=== PATIENT | female | born 1955 | race Two or more races ===

== ENCOUNTER → 2018-02-22 | Outpatient (CLI) | payer OTHER ==
[~2018-02-22] MED LIST: BARIUM SULFATE 40% (APPLE) 148 GM PWD. PO
[2018-02-22] MEDS: BARIUM SULFATE 40% (APPLE) 148 GM PWD. PO (10:29)
== END | disposition home or self-care (01) ==
LOC: RAD 10:03
DX: R13.10 Dysphagia, unspecified (principal)
CPT/HCPCS: 74230; 92611-GN

== ENCOUNTER → 2018-08-19 | Outpatient (CLI) | payer OTHER ==
[2017-11-05 15:03] VITALS: BP 146/69
[~2018-08-19] MED LIST changes: +ATOR10TA60 PO; -BARIUM SULFATE 40% (APPLE) 148 GM PWD. PO; +BUDE0.5A NEB; +CEPH-263 PO; +IPRA3AMP29 NEB; +LACT1CAP19 PO; +NITR100C62 PO; +PRED-220 PO; +SERT50TA8 PO
--- NOTE | 2018-08-19 14:13 | RAD ---
CT of the chest without IV contrast compared to CTA of the chest dated November 05, 2017 for history of lung cancer. TECHNIQUE: Contiguous helical 5 mm axial images are obtained from the thoracic inlet to the base of the diaphragm. Sagittal and coronal reformations are evaluated. FINDINGS: The previously seen areas of subsegmental atelectasis in both lung bases have resolved. There is redemonstration of patchy diffuse ground glass opacification through various segments and subsegments of both lungs, in a distribution largely unchanged from the prior examination. Differential diagnostic considerations for these findings on a chronic basis include eosinophilic pneumonia, any of the idiopathic interstitial pneumonias, or perhaps sarcoidosis. There are also several tiny 3 to 4 mm peripheral pulmonary nodules, most of which were not apparent on the prior CT scan likely due to respiratory motion artifact, though these nodules may be new. These can be seen in the right upper lobe on axial image 19, 21, 28, right middle lobe axial image 34, 37, right lower lobe axial image 39, left lower lobe axial image 39, 41, 42, and 50. No dominant nodules are identified. Heart size within normal limits. Mild multifocal coronary artery calcifications are seen. No suspicious mediastinal, hilar, or axillary lymphadenopathy is evident. No suspicious osteoblastic or osteolytic bone lesions are found. IMPRESSION: 1. Resolved bibasilar subsegmental atelectasis. 2. Persistent patchy segmental and subsegmental groundglass opacities in an unchanged distribution. The chronicity of this finding would suggest a differential diagnosis of any of the diopathic interstitial pneumonia, eosinophilic pneumonia, or perhaps sarcoidosis. 3. Multiple 3 to 4 mm peripheral pulmonary nodules which are too small to characterize. These were not definitely present on the prior examination, however they may have been obscured on the basis respiratory motion. Consider follow-up to establish stability over at least 12 months. Electronically signed by: Castro Pack MD (08/19/2018 2:10 PM) [email or web address]
== END | disposition home or self-care (01) ==
LOC: CT 09:06
PROVIDERS: ATTEND Internal Medicine Pulmonary Disease
DX: R91.8 Other nonspecific abnormal finding of lung field (principal); K21.9 Gastro-esophageal reflux disease without esophagitis; I10 Essential (primary) hypertension; E78.5 Hyperlipidemia, unspecified; J45.909 Unspecified asthma, uncomplicated; Z88.1 Allergy status to other antibiotic agents; Z88.8 Allergy status to other drugs, medicaments and biological substances
CPT/HCPCS: 71250

== ENCOUNTER 2018-11-25 11:08 | Emergency (ER) | payer OTHER ==
[~2018-11-25] VITALS: Ht 172.7 cm; Wt 92.1 kg
[2018-11-25 12:30] LABS: BASO % 1 % (0-3); EOS # 0.7 x10^3/uL (0.0-0.7); EOS % 8 % (0-3); HEMATOCRIT 41.7 % (36.0-47.0); HEMOGLOBIN 14.3 g/dL (12.0-15.5); LYMPH # 1.9 x10^3/uL (1.0-4.8); LYMPH % 22 % (24-48); MEAN CORPUSCULAR HEMOGLOBIN 31 pg (25-35); MEAN CORPUSCULAR HGB CONC 34 g/dL (31-37); MEAN CORPUSCULAR VOLUME 90 fL (79-100); MONO # 0.8 x10^3/uL (0.0-1.1); MONO % 10 % (0-9); NEUT # 5.1 x10^3uL (1.8-7.7); NEUT % 59 % (31-73); PLATELET COUNT 314 x10^3/uL (140-400); RED BLOOD COUNT 4.62 x10^6/uL (3.50-5.40); RED CELL DISTRIBUTION WIDTH 13.2 % (11.5-14.5); WHITE BLOOD COUNT 8.6 x10^3/uL (4.0-11.0)
--- NOTE | 2018-11-25 12:35 | PHYS DOC ---
Past Medical History Past Medical History: Asthma, Hypertension Past Surgical History: No Surgical History Alcohol Use: None Drug Use: None Adult General Chief Complaint Chief Complaint: SOA HPI HPI 63-year-old female presenting to the emergency department today with worsening cough and shortness of breath over the past 2 months. She has used her inhaler at home with mild relief. She has a history of asthma. Nonproductive cough. No fevers or chills. Review of systems is negative for chest pain abdominal pain nausea vomiting fevers or chills. She denies any new rashes. All other review of systems is negative unless otherwise noted in history of present illness. ED course: 63-year-old female presenting with a chronic cough with worsening shortness of breath. On arrival she is satting well on room air. She has wheezing on exam. Steroids and nebulizer given here in the emergency department. Chest x-ray and blood work obtained. Chest x-ray unremarkable. Blood work unremarkable. Patient has a nebulizer at home and would prefer to use that instead of getting a nebulizer here. We'll give the patient oral prednisone to continue nebulizer at home to follow up with PCP in one to 2 days.The patient has been examined and was not found to have an emergency medical condition. The patient was then discharged home in stable condition to follow up with their primary care physician over the next 1-2 days. They were to return if their symptoms worsened or if they were concerned for any reason. They were also instructed to return to the emergency department if they were unable to get the recommended and appropriate follow-up. [id number] discharge instructions and return precautions were given. Patient's questions were answered to their satisfaction. Patient is comfortable with plan. Review of Systems Review of Systems SEE ABOVE. Current Medications Current Medications Current Medications Medications (Trade) Dose Ordered Sig/Maria E Start Time Stop Time Status Last Admin Dose Admin Albuterol/ Ipratropium (Duoneb) 3 ml 1X ONCE 11/25/18 15:00 11/25/18 15:01 DC Allergies Allergies Allergies Coded Allergies Type Severity Reaction Last Updated Verified amoxicillin Allergy Severe rash 11/04/17 Yes acetaminophen Allergy Chely Zimmerman told her she was allergic 11/04/17 Yes Physical Exam Physical Exam SEE ABOVE Constitutional: Well developed, well nourished, no acute distress, non-toxic appearance. [] HENT: Normocephalic, atraumatic, bilateral external ears normal, oropharynx moist, no oral exudates, nose normal. [] Eyes: PERRLA, EOMI, conjunctiva normal, no discharge. [] Neck: Normal range of motion, no tenderness, supple, no stridor. [] Cardiovascular:Heart rate regular rhythm, no murmur [] Lungs & Thorax: wheezing bilaterally on exam with normal work of breathing. Abdomen: Bowel sounds normal, soft, no tenderness, no masses, no pulsatile masses. [] Skin: Warm, dry, no erythema, no rash. [] Back: No tenderness, no CVA tenderness. [] Extremities: No tenderness, no cyanosis, no clubbing, ROM intact, no edema. [] Neurologic: Alert and oriented X 3, normal motor function, normal sensory function, no focal deficits noted. [] Psychologic: Affect normal, judgement normal, mood normal. [] Current Patient Data Vital Signs Vital Signs Date Time Temp Pulse Resp B/P (MAP) Pulse Ox O2 Delivery O2 Flow Rate FiO2 11/25/18 11:26 98.0 80 20 143/84 (103) 87 Room Air 98.0 Lab Values Laboratory Tests Test 11/25/18 12:15 White Blood Count 8.6 x10^3/uL (4.0-11.0) Red Blood Count 4.62 x10^6/uL (3.50-5.40) Hemoglobin 14.3 g/dL (12.0-15.5) Hematocrit 41.7 % (36.0-47.0) Mean Corpuscular Volume 90 fL (79-100) Mean Corpuscular Hemoglobin 31 pg (25-35) Mean Corpuscular Hemoglobin Concent 34 g/dL (31-37) Red Cell Distribution Width 13.2 % (11.5-14.5) Platelet Count 314 x10^3/uL (140-400) Neutrophils (%) (Auto) 59 % (31-73) Lymphocytes (%) (Auto) 22 % (24-48) L Monocytes (%) (Auto) 10 % (0-9) H Eosinophils (%) (Auto) 8 % (0-3) H Basophils (%) (Auto) 1 % (0-3) Neutrophils # (Auto) 5.1 x10^3uL (1.8-7.7) Lymphocytes # (Auto) 1.9 x10^3/uL (1.0-4.8) Monocytes # (Auto) 0.8 x10^3/uL (0.0-1.1) Eosinophils # (Auto) 0.7 x10^3/uL (0.0-0.7) Basophils # (Auto) 0.0 x10^3/uL (0.0-0.2) Sodium Level 140 mmol/L (136-145) Potassium Level 4.2 mmol/L (3.5-5.1) Chloride Level 104 mmol/L (98-107) Carbon Dioxide Level 30 mmol/L (21-32) Anion Gap 6 (6-14) Blood Urea Nitrogen 10 mg/dL (7-20) Creatinine 0.8 mg/dL (0.6-1.0) Estimated GFR (Cockcroft-Gault) 72.4 BUN/Creatinine Ratio 13 (6-20) Glucose Level 103 mg/dL (70-99) H Calcium Level 9.1 mg/dL (8.5-10.1) Total Bilirubin 0.6 mg/dL (0.2-1.0) Aspartate Amino Transferase (AST) 12 U/L (15-37) L Alanine Aminotransferase (ALT) 18 U/L (14-59) Alkaline Phosphatase 60 U/L (46-116) Troponin I Quantitative < 0.017 ng/mL (0.000-0.055) Total Protein 8.0 g/dL (6.4-8.2) Albumin 3.4 g/dL (3.4-5.0) Albumin/Globulin Ratio 0.7 (1.0-1.7) L Lipase 119 U/L (73-393) Laboratory Tests 11/25/18 12:15 Laboratory Tests 11/25/18 12:15 EKG EKG [] Radiology/Procedures Radiology/Procedures [] Course & Med Decision Making Course & Med Decision Making Pertinent Labs and Imaging studies reviewed. (See chart for details) [] Dragon Disclaimer Dragon Disclaimer This electronic medical record was generated, in whole or in part, using a voice recognition dictation system. Departure Departure Impression: Primary Impression: Reactive airway disease Disposition: 01 HOME, SELF-CARE Condition: STABLE Referrals: UNKNOWN PCP NAME (PCP) Patient Instructions: Asthma, Adult, [id number] Additional Instructions: Thank you for allowing us to participate in your care today. Return to the emergency department you have any new or worsening symptoms, or if you are concerned for any reason. Return to emergency department if you have any new or concerning symptoms including but not limited to fever, chills, nausea, vomiting, intractable pain, any new rashes, chest pain, shortness of air , uncontrolled bleeding, difficulty breathing, and/or vision loss. Follow up with your primary care physician within 1-2 days. Call your Primary Doctor tomorrow and inform them of your visit today. If you do not have a primary care provider we are happy to provide you with a list of our primary care providers contact information. This condition should be evaluated by your primary care physician and any recommended consulting services for continued management within 2 days after discharge. If at any time, you are having difficulty getting into your primary care doctor or a specialist, return to the emergency department. Scripts Prednisone (PREDNISONE) 50 Mg Tablet 1 TAB PO DAILY, #5 TAB Prov: CATHLEEN MURRAY MD 11/25/18 CATHLEEN MURRAY MD Nov 25, 2018 12:35
[2018-11-25 12:38] LABS: CALCIUM 9.1 mg/dL (8.5-10.1); CREATININE 0.8 mg/dL (0.6-1.0); GFR 72.4; POTASSIUM 4.2 mmol/L (3.5-5.1)
[2018-11-25 12:44] LABS: ALBUMIN 3.4 g/dL (3.4-5.0); ALBUMIN/GLOBULIN RATIO 0.7 (1.0-1.7); TOTAL BILIRUBIN 0.6 mg/dL (0.2-1.0)
--- NOTE | 2018-11-25 13:58 | RAD ---
CHEST AP ONLY History: short of air, cough. Comparison: November 17, 2017 image but no report. Cardiomediastinal silhouette: Not grossly enlarged. Lungs: No focal airspace consolidation. Pleura: No evidence of pleural effusion. Pneumothorax: None visualized Support Devices: None. Impression: No acute infiltrate. Electronically signed by: Adelfo Mukherjee MD (11/25/2018 11:49 AM) [email or web address]
[2018-11-25] MEDS ORDERED: PRED50TA PO (14:54)
[2018-11-25 14:59] VITALS: BP 142/75
[2018-11-25] MEDS ORDERED: IPRATRPIUM/ALBUTEROL 0.5/2.5MG 3 ML NEBU. NEB ONE (15:00)
[2018-11-25 16:03] LABS: BILIRUBIN,URINE NEGATIVE (NEG); CLARITY,URINE CLEAR; COLOR,URINE YELLOW; NITRITE,URINE NEGATIVE (NEG); PH,URINE 6.5; PROTEIN,URINE NEGATIVE (NEG-TRACE); UROBILINOGEN,URINE 0.2 mg/dL (0.2 mg/dL)
[2018-11-25 16:11] LABS: BACTERIA,URINE 0 /HPF (0-FEW); RBC,URINE 0 /HPF (0-2); SQUAMOUS EPITHELIAL CELL,UR FEW /LPF
== END 2018-11-25 15:15 | disposition home or self-care (01) ==
LOC: ER 11:08
DX: J45.909 Unspecified asthma, uncomplicated (principal); I10 Essential (primary) hypertension; Z88.1 Allergy status to other antibiotic agents; Z88.8 Allergy status to other drugs, medicaments and biological substances
CPT/HCPCS: 36415; 71045; 80053; 81001; 83690; 84484; 85025; 87086; 99284-25

== ENCOUNTER → 2019-02-16 | Outpatient (CLI) | payer OTHER ==
[~2019-02-16] MED LIST changes: +PRED50TA PO
--- NOTE | 2019-02-16 14:19 | RAD ---
MRI of the brain without contrast 02/16/2019 Clinical History: Bilateral hand numbness. Technique: Unenhanced T1-weighted sagittal and axial, T2-weighted axial and coronal and FLAIR, gradient echo and diffusion-weighted axial images of the brain were obtained. Findings: No previous imaging studies are available for comparison. There is generalized parenchymal atrophy. Patchy and a few small scattered areas of increased signal intensity are seen within the periventricular and subcortical white matter of both cerebral hemispheres on the FLAIR and T2-weighted images consistent with areas of minimal small vessel ischemic disease. No acute parenchymal abnormality is seen. No extra-axial fluid collection is seen. There is no MRI evidence of acute ischemia/infarction. Mild to moderate mucosal thickening is seen throughout the paranasal sinuses. There are small bilateral mastoid effusions. Normal flow voids are seen within the major vascular structures surrounding the brain parenchyma. Impression: No acute parenchymal abnormality is seen. Electronically signed by: Geovanny Goode MD (02/16/2019 2:16 PM) [email or web address]
== END | disposition home or self-care (01) ==
LOC: MRI 10:44
PROVIDERS: ATTEND Psychiatry & Neurology Neurology with Special Qualifications in Child Neurology
DX: H74.8X3 Other specified disorders of middle ear and mastoid, bilateral (principal); G31.89 Other specified degenerative diseases of nervous system; R10.9 Unspecified abdominal pain
CPT/HCPCS: 70551

== ENCOUNTER → 2020-09-05 | Outpatient (CLI) | payer MEDICAID ==
[2019-08-14 22:36] VITALS: BP 157/93
[~2020-09-05] MED LIST changes: +ALBU2.5V8 INH; +AZIT250T PO; +PRED20TA PO
--- NOTE | 2020-09-05 16:40 | RAD ---
LUMBAR SPINE 2-3V History: Reason: CHRONIC LOW BACK PAIN / Spl. Instructions: / History: Technique: 3 views lumbar spine. Comparison: December 21, 2017 Findings: Grade 1 anterolisthesis L5 on S1, unchanged. Normal vertebral body height. No fracture. Multilevel degenerative disc changes most prominent L5-S1. Lower lumbar facet arthropathy. Impression: 1. Multilevel lumbar spondylosis most prominent L5-S1 with grade 1 anterolisthesis, unchanged. Electronically signed by: Marc Jeffries DO (09/05/2020 4:36 PM) [id number]
--- NOTE | 2020-09-05 16:41 | RAD ---
KNEE STANDING BILAT AP History: Reason: CHRONIC PAIN / Spl. Instructions: / History: Technique: AP standing view of the knees. Comparison: None. Findings: Normal alignment. No fracture. Mild bilateral medial compartment degenerative changes. Impression: 1. Mild bilateral knee DJD. Electronically signed by: Marc Jeffries DO (09/05/2020 4:38 PM) [id number]
== END ==
LOC: RAD 11:05
PROVIDERS: ATTEND Physical Medicine & Rehabilitation
DX: M17.0 Bilateral primary osteoarthritis of knee (principal); M47.817 Spondylosis without myelopathy or radiculopathy, lumbosacral region; M43.17 Spondylolisthesis, lumbosacral region; G89.29 Other chronic pain
CPT/HCPCS: 72100; 73565